=== PATIENT | female | born 1960 | race Caucasian/White ===

== ENCOUNTER → 2018-06-14 | Outpatient (CLI) | payer OTHER ==
[~2018-06-14] MED LIST: PROG100 PO; TESTOSTERONE; TESTTP TOP; THYR60 PO; TRAM50 PO
[2018-06-16 15:07] LABS: HPV 16 Negative (Negative); HPV 18 Negative (Negative); HPV OTHER HR TYPES Negative (Negative)
== END | disposition home or self-care (01) ==
LOC: LAB 10:06 → LAB SHORT 10:06
PROVIDERS: Obstetrics & Gynecology
DX: Z01.419 Encounter for gynecological examination (general) (routine) without abnormal findings (principal)
CPT/HCPCS: 87624; G0123

== ENCOUNTER → 2018-10-19 | Outpatient (CLI) | payer OTHER ==
[2018-10-19 18:55] LABS: Bilirubin, Urine Neg (Neg); Blood, Urine 2+ (Neg); Glucose Qualitative, Urine Neg (Neg); Ketones, Urine 2+ (Neg); Leukocyte Esterase, Urine 3+ (Neg); Nitrite, Urine Neg (Neg); Protein, Urine 2+ (Neg); Urobilinogen, Urine NORM (Normal)
[2018-10-19 19:03] LABS: Appearance, Urine Clear (Clear); Color, Urine Yellow (P-Yellow)
[2018-10-19 19:05] LABS: Red Blood Cells, Urine 0-2 /hpf (0-2)
[2018-10-19 19:06] LABS: Bacteria Rare /hpf; Squamous Epithelial Cells Rare /hpf (Few)
[2018-10-20 09:11] LABS: Candida species (DNA Probe) Negative (NEGATIVE); G. vaginalis (DNA Probe) Positive (NEGATIVE); T. vaginalis (DNA Probe) Negative (NEGATIVE)
[2018-10-22 00:11] LABS: CHLAMYDIA TRACHOMATIS, NAA Negative (Negative); NEISSERIA GONORRHOEAE, NAA Negative (Negative)
== END ==
LOC: LAB 18:42 → LAB SHORT 18:42
PROVIDERS: Nurse Practitioner Family
DX: R30.0 Dysuria (principal); N89.8 Other specified noninflammatory disorders of vagina
CPT/HCPCS: 81001; 87077; 87086; 87186; 87480; 87491; 87510; 87591; 87660

== ENCOUNTER 2021-12-29 08:49 | Day surgery (SDC) | payer OTHER ==
[~2021-12-29] VITALS: Ht 167.6 cm; Wt 64.7 kg
[~2021-12-29 08:49] MED LIST changes: +BIEST CREAM TOP; +EUTHYROX75 MC1 PO; +LEVOTHYROXINE PO; +Voltaren100 GM TOP
--- NOTE | 2021-12-29 18:34 | NUR ---
SHIFT SUMMARY EATING, DRINKING, VOIDING WELL. UNFORTUNATLY, WAS NOT ABLE TO WORK w/ THERAPY & HAS NOT BEEN OUT OF BED; PT IS ABLE TO LIFT BOTH LEGS BUT UNABLE TO DORSIFLEX SURGICAL LEG. PLANTER FLEXATION IN TACT TO BOTH LEGS. PAIN IS MODERATLY CONTROLLED.
--- NOTE | 2021-12-30 04:51 | NUR ---
SHIFT SUMMARY: PT. AOX4, POD 1 OF R THR. POSTERIOR R HIP INCISION, R LOWER QUADRANT & R THIGH INCISION SITES WITH GAUZE DRESSING & FOAM TAPES C/D/I. COMPLAINTS OF R HIP PAIN MEDICATED PER EMAR. AMBULATED TO THE HALLWAY WITH WALKER & GAITBELT WITH 1 PERSON ASSIST, TOLERATED WELL. NO ACUTE CHANGES NOTED, WILL CONTINUE TO MONITOR. ABLE TO MAKE NEEDS KNOWN & USES CALL LIGHT.CLWR.
[2021-12-30 05:00] LABS: BASOPHILS ABSOLUTE AUTO 0.02 K/mm3 (0.00-0.23); BASOPHILS PERCENT AUTO 0 % (0-2); EOSINOPHILS ABSOLUTE AUTO 0.01 K/mm3 (0.00-0.68); EOSINOPHILS PERCENT AUTO 0 % (0-6); Hematocrit 33.7 % (33.0-51.0); Hemoglobin 11.1 g/dL (11.5-16.0); IMMATURE GRAN ABSOLUTE AUTO 0.05 K/mm3 (0.00-0.10); IMMATURE GRAN PERCENT AUTO 0 % (0-1); LYMPHOCYTES ABSOLUTE AUTO 1.62 K/mm3 (0.84-5.20); LYMPHOCYTES PERCENT AUTO 11 % (21-46); MONOCYTES ABSOLUTE AUTO 1.36 K/mm3 (0.16-1.47); MONOCYTES PERCENT AUTO 10 % (4-13); Mean Corpuscular HGB 30.2 pg (26.0-34.0); Mean Corpuscular HGB Conc 32.9 g/dL (31.5-36.5); Mean Corpuscular Volume 92 fL (80-100); NEUTROPHILS ABSOLUTE AUTO 11.22 K/mm3 (1.96-9.15); NEUTROPHILS PERCENT AUTO 79 % (41-73); Platelet Count 170 K/mm3 (150-400); RDW Coefficient Variation 12.5 % (11.7-14.2); Red Blood Cell Count 3.68 M/mm3 (3.80-5.20); White Blood Cell Count 14.28 K/mm3 (4.00-11.30)
[2021-12-30 05:09] LABS: Anion Gap 7 mmol/L (6-16); Blood Urea Nitrogen 15 mg/dL (8-24); Bun/Creatinine Ratio 22.9 (12.0-20.0); CO2, Blood 27 mmol/L (21-32); Calcium, Blood 8.6 mg/dL (8.5-10.1); Chloride, Blood 108 mmol/L (98-108); Creatinine, Blood 0.65 mg/dL (0.40-1.00); Glomerular Filtration Rate >60 (60-); Glucose, Blood 118 mg/dL (70-99); Potassium, Blood 3.8 mmol/L (3.5-5.5); Sodium, Blood 142 mmol/L (136-145)
--- NOTE | 2021-12-30 09:45 | NUR ---
FAXED PHENERGAN PRESCRIPTION TO [facility] PER PT REQUEST.
[2021-12-30] MEDS ORDERED: OXAYDO5 M2 PO (09:54)
[2021-12-30] MEDS ORDERED: ASPI81CH PO (09:54)
[2021-12-30] MEDS ORDERED: PROM25 PO (09:55)
[2021-12-30] MEDS ORDERED: SULTRIDS PO (09:55)
--- NOTE | 2021-12-30 10:45 | NUR ---
DISCHARGE VSS ON RA. PT TOLERATING PO INTAKE WELL, DENIES N/V, VOIDING WELL, AMBULATING WELL. CLEARED PT & OT TODAY. DR STINSON CHANGED DRESSINGS TO AQUACEL DRESSING THIS AM. DISCUSSED DISCHARGE INSTRUCTIONS, PATIENT HAS NO QUESTIONS OR CONCERNS AT THIS TIME. SENT DISCHARGE INSTRUCTIONS, AQUACEL DRESSINGS, & POLAR PACK W/ PATIENT. REMOVED IV, ESCORTED OUT VIA W/C.
== END 2021-12-30 10:55 | disposition home or self-care (01) ==
LOC: ORSCMMR 08:49 → ORD 11:15 → ORSCMMR 11:15 → SURS 13:47 → ORSCMMR 12-30 10:55
PROVIDERS: Orthopaedic Surgery
PROC: 0SR90JA Replacement of Right Hip Joint with Synthetic Substitute, Uncemented, Open Approach (ICD-10-PCS; principal; 2021-12-29 11:15)
PROC: 8E0YXBZ Computer Assisted Procedure of Lower Extremity (ICD-10-PCS; principal; 2021-12-29 11:15)
DX: M16.11 Unilateral primary osteoarthritis, right hip (principal); M79.7 Fibromyalgia; E03.9 Hypothyroidism, unspecified; Z79.899 Other long term (current) drug therapy
CPT/HCPCS: 36415; 72170; 80048; 83735; 85025; 97110; 97116; 97161; 97165; 97530; 97535; A9270; C1713; C1776; J0171; J0690; J0735; J1100; J1170; J1885; J2250; J2405; J2704; J2795; J3010; J3370; J7050; J7120

== ENCOUNTER 2022-05-24 12:47 | Emergency (ER) | payer OTHER ==
[~2022-05-24] VITALS: Ht 167.6 cm; Wt 68.0 kg
[~2022-05-24 12:47] MED LIST changes: +ASPI81CH PO; +OXAYDO5 M2 PO; +PROM25 PO; +SULTRIDS PO
== END 2022-05-24 15:23 | disposition home or self-care (01) ==
LOC: ER 12:47
DX: M25.551 Pain in right hip (principal); Z79.82 Long term (current) use of aspirin; Z79.899 Other long term (current) drug therapy; Z96.641 Presence of right artificial hip joint
CPT/HCPCS: 73502

== ENCOUNTER → 2023-05-27 | Outpatient (CLI) | payer OTHER ==
[2023-05-27 18:21] LABS: Bacteria Few /hpf; Mucus Light (0-Heavy); Squamous Epithelial Cells Few /hpf (Few); White Blood Cells, Urine 0-2 /hpf (0-5)
[2023-05-28 08:29] LABS: Stool Occult Bld Immuno 1 Positive (NEGATIVE)
== END | disposition home or self-care (01) ==
LOC: LAB SHORT 15:50 → LAB 15:50
PROVIDERS: Family Medicine
DX: R10.9 Unspecified abdominal pain (principal)
CPT/HCPCS: 81015; 82274; 83993

== ENCOUNTER 2023-07-14 07:55 | Day surgery (SDC) | payer OTHER ==
[~2023-07-14] VITALS: Ht 165.1 cm; Wt 74.7 kg
[2023-07-14] VITALS (19 sets, daily range): BP systolic 99–129; BP diastolic 13–89
[~2023-07-14 07:55] MED LIST changes: +BUSP5 PO; +Robaxin750 MG PO
[2023-07-14] MEDS ORDERED: BIEST (08:44)
--- NOTE | 2023-07-14 09:02 | NUR ---
Ambulatory in Day Surgery Patient confirms NPO status and agrees with scheduled surgery. Pre-Op teaching done. Pt verbalizes understanding. History, Chart, Medications and Allergies reviewed before start of procedure.Patient States Post-Procedure ride home has been arranged.
--- NOTE | 2023-07-14 09:27 | NUR ---
07/14/23 0927 Mckayla Plata HISTORY, CHART, MEDICATIONS AND ALLERGIES REVIEWED BEFORE START OF PROCEDURE. PATIENT CONFIRMS NPO STATUS AND AGREES WITH SCHEDULED PROCEDURE. 3-LEAD EKG REVIEWED WITH PHYSICIAN PRIOR TO START OF PROCEDURE. MONITOR INTACT WITH CONTINUOUS PULSE OXIMETRY,CAPNOGRAPHY, 3-LEAD EKG, INTERMITTENT BP. SUPPLEMENTAL O2 TO BE TITRATED THROUGHOUT PROCEDURE TO MAINTAIN O2 SATURATION ABOVE 90%. PATIENT DETERMINED TO BE ASA APPROPRIATE FOR PROPOFOL SEDATION PRIOR TO START OF PROCEDURE BY DR. WALL. HEART RATE 40-45BPM; NOTIFIED.
--- NOTE | 2023-07-14 10:26 | NUR ---
Discharge instructions reviewed with patient. Patient verbalizes understanding. Copy given to patient to take home.
--- NOTE | 2023-07-14 10:35 | NUR ---
Discharged via wheelchair to private car for ride home.
== END 2023-07-14 10:35 | disposition home or self-care (01) ==
LOC: ORSCMMR 07:55 → ORD 08:30 → ORSCMMR 10:35
PROVIDERS: Internal Medicine Gastroenterology
PROC: 0DBN8ZX Excision of Sigmoid Colon, Via Natural or Artificial Opening Endoscopic, Diagnostic (ICD-10-PCS; principal; 2023-07-14 08:30)
PROC: 0DBH8ZX Excision of Cecum, Via Natural or Artificial Opening Endoscopic, Diagnostic (ICD-10-PCS; principal; 2023-07-14 08:30)
DX: K92.1 Melena (principal); R10.9 Unspecified abdominal pain; K63.5 Polyp of colon; D12.0 Benign neoplasm of cecum; K57.30 Diverticulosis of large intestine without perforation or abscess without bleeding; F41.9 Anxiety disorder, unspecified; E03.9 Hypothyroidism, unspecified; Z79.899 Other long term (current) drug therapy
CPT/HCPCS: 88305; J2250; J2704; J7120

== ENCOUNTER → 2023-08-24 | Outpatient (CLI) | payer OTHER ==
[~2023-08-24] MED LIST changes: +BIEST
== END ==
LOC: LAB 15:16 → LAB SHORT 15:16
DX: R30.0 Dysuria (principal); R35.0 Frequency of micturition
CPT/HCPCS: 87077; 87086; 87186

== ENCOUNTER 2024-07-31 06:10 | Day surgery (SDC) | payer OTHER ==
[~2024-07-31] VITALS: Ht 167.6 cm; Wt 77.3 kg
[~2024-07-31 06:10] MED LIST changes: -BIEST; +BIEST TOP; +ESTRADIOL42.5 GM TOP; +NAPROXEN500 MG PO; +[UNRECOGNIZED DRUG - OTHER] PO
[2024-07-31] MEDS ORDERED: Lactated Ringer's 1,000 ML IV ONE ×2 (06:19→06:50)
[2024-07-31] MEDS ORDERED: CeFAZolin Sodium 2,000 MG VIAL ONE (06:19)
[2024-07-31] MEDS ORDERED: NS 0 ML IV ONE (06:19)
[2024-07-31] MEDS ORDERED: BIEST TOP (06:40)
[2024-07-31] MEDS ORDERED: EPINEPhrine HCl 1 MG/ML 1ML Amp ONE (06:59)
[2024-07-31] MEDS ORDERED: Midazolam HCl 1MG / ML 2ML Vial ONE (07:16)
[2024-07-31] MEDS ORDERED: FentaNYL Citrate 50 MCG/ML 2 ML Injection ONE (07:16)
[2024-07-31] MEDS ORDERED: Rocuronium Bromide 10 MG/ML 5ML Injection IV ONE (07:16)
[2024-07-31] MEDS ORDERED: propofoL 20 ML IV ONE ×2 (07:17)
[2024-07-31] MEDS ORDERED: Bupivacaine 0.5% HCl 5 MG/ML 30MLVIAL ONE (07:21)
[2024-07-31] MEDS ORDERED: CefTRIAXone Sodium 2,000 MG in NS 100 ML IV SCH (07:40)
--- NOTE | 2024-07-31 07:41 | NUR ---
07/31/24 0741 Joey Jolly, BLOCK TIMEOUT 0784 BLOCK STARTED 0736 BLOCK FINISHED 0754
[2024-07-31] MEDS ORDERED: Sugammadex Sodium 200 MG/2ML SDV (100 MG/ML) ONE (08:36)
[2024-07-31 09:48] VITALS: BP 135/66
--- NOTE | 2024-07-31 11:00 | NUR ---
07/31/24 1100 Aziza Coreas PT HAD NO N/V OR PAIN. DRANK 2 CUPS OF COFFEE WITHOUT ISSUE. SPOUSE DEMETRA HERE FOR DISCHARGE INSTRUCTIONS. PT HAPPY AND READY TO GO HOME.
== END 2024-07-31 10:52 | disposition home or self-care (01) ==
LOC: ORSCSDS 06:10
PROVIDERS: Orthopaedic Surgery
PROC: 0LS34ZZ Reposition Right Upper Arm Tendon, Percutaneous Endoscopic Approach (ICD-10-PCS; principal; 2024-07-31 07:30)
PROC: 0LQ14ZZ Repair Right Shoulder Tendon, Percutaneous Endoscopic Approach (ICD-10-PCS; principal; 2024-07-31 07:30)
DX: M75.111 Incomplete rotator cuff tear or rupture of right shoulder, not specified as traumatic (principal); M75.41 Impingement syndrome of right shoulder; M75.31 Calcific tendinitis of right shoulder; M79.7 Fibromyalgia; Z79.899 Other long term (current) drug therapy
CPT/HCPCS: C1713; J0171; J0690; J0696; J2250; J2704; J3010; J7120